=== PATIENT | male | born 1980 | race Caucasian/White ===

== ENCOUNTER 2019-02-17 05:49 | Inpatient (IN) ==
[2019-02-17] MEDS ORDERED: HUMULIN R IV ONE (06:04)
[2019-02-17] MEDS ORDERED: NS 1,000 ML IV ONE (06:04)
--- NOTE | 2019-02-17 06:16 | PROVIDER DOCUMENTATION ---
HPI-Respiratory General - General Chief Complaint: Shortness of Breath Stated Complaint: SOB Time Seen by Provider: 02/17/19 06:03 Source: patient, EMS Allergies/Adverse Reactions: Patient Allergies Allergy/AdvReac Type Severity Reaction Status Date / Time No Known Allergies Allergy Verified 01/15/16 22:45 Home Medications: Home Medication List Medication Instructions Recorded Confirmed Last Taken Type Gabapentin 300 mg PO TID 09/17/14 02/17/19 Unknown History ATORVAstatin [Lipitor] 40 mg PO QHS #30 tablet 01/23/16 02/17/19 Unknown Rx Clopidogrel [Plavix] 75 mg PO DAILY #30 tablet 01/23/16 02/17/19 Unknown Rx Aspirin [Aspirin EC] 81 mg PO QPM 02/17/19 02/17/19 Unknown History Citalopram Hydrobromide [Celexa] 10 mg PO DAILY 02/17/19 02/17/19 Unknown History Furosemide [Lasix] 20 mg PO DAILY 02/17/19 02/17/19 Unknown History Insulin Glargine,Hum.rec.anlog 50 units SQ QPM 02/17/19 02/17/19 Unknown History [Lantus Solostar] Levetiracetam [Keppra] 500 mg PO QPM 02/17/19 02/17/19 Unknown History Levetiracetam [Keppra] 750 mg PO QAM 02/17/19 02/17/19 Unknown History Metformin HCl [Glucophage] 1,000 mg PO BID 02/17/19 02/17/19 Unknown History - History of Present Illness-Resp Nature of Presenting Problem: pt reports cough and congestionyesterday and today, dry cough, . no vomiting. type 1 dIABetes taking 50 u lantus/day. not on home oxygen. 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 No new weakness, no sycnope or seizure. Review of Systems - Adult - REVIEW OF SYSTEMS - ADULT Constitutional: reports: no symptoms reported Eyes: reports: no symptoms reported Ears, Nose, Mouth & Throat: reports: no symptoms reported Cardiovascular: reports: no symptoms reported Respiratory: reports: no symptoms reported Gastrointestinal: reports: no symptoms reported Genitourinary: reports: no symptoms reported Musculoskeletal: reports: no symptoms reported Integumentary: reports: no symptoms reported Neurological: reports: no symptoms reported Psychiatric: reports: no symptoms reported Endocrine: reports: no symptoms reported Hematologic/Lymphatic: reports: no symptoms reported Allergic/Immunologic: reports: no symptoms reported All Other Systems: Reviewed and Negative Past History - Adult - PAST MEDICAL HISTORY-ADULT Review of Records: reports: Old Records Reviewed, Nursing Assessment Review, Medications Reviewed, Social history reviewed & non-contributory. Major Childhood Illnesses: reports: denies history Cardiovascular: reports: HTN Respiratory: reports: asthma Gastrointestinal: reports: denies history Obstetrical/Gynecological: reports: denies history Genitourinary: reports: denies history Musculoskeletal: reports: denies history Neurological: reports: CVA (2014), Seizures/Epilepsy Endocrine/Immune: reports: Diabetes Diabetes Type: Type 1 Other Conditions: reports: denies history - PRIOR SURGERIES/PROCEDURES Surgical/Procedure History: reports: none - PRIOR HOSPITALIZATIONS Prior Hospitalizations: reports: for similar symptoms - IMMUNIZATION STATUS Childhood Immunizations: See Nurse Assessment Flu Vaccine: See Nurse Assessment - FAMILY HISTORY Family History: reviewed, not pertinent - SOCIAL HISTORY Smoking: cigarettes, greater than 1 pack/day Living Situation: family Physical Exam-General - PHYSICAL EXAM-ADULT Initial Vital Signs Reviewed: Yes - CONSTITUTIONAL General Appearance: alert, mild distress - EYES Eyes: PERRL/EOMI - HEAD, EARS, NOSE, MOUTH & THROAT HENMT: normocephalic/atraumatic, moist mucous membranes - NECK Neck: non-tender, full range of motion, supple - RESPIRATORY Respiratory: chest non-tender, lungs clear, normal breath sounds, no pleuratic chest pain, no respiratory distress, no accessory muscle use - CARDIOVASCULAR Cardiovascular: normal peripheral pulses, regular rate, rhythm, no edema, no gallop, no JVD, no murmur - GASTROINTESTINAL (ABDOMEN) Abdominal Exam: normal bowel sounds, non tender, soft, no organomegaly, no pulsatile mass - MUSCULOSKELETAL Extremity: normal inspection - SKIN Integumentary: normal color, normal turgor, warm/dry - NEUROLOGIC Neurologic: other (chronic weakness left upper extremity) - PSYCHIATRIC Psych/Mental Status: normal mood/affect, normal thought content, normal thought process, oriented x 3 Progress - PLAN OF CARE/RESULTS Progress/Plan/Lab Results: Vital Signs - 8 hr 02/17/19 06:02 Temperature 98.4 F Pulse Rate 120 H Respiratory Rate 24 Blood Pressure 131/99 O2 Sat by Pulse Oximetry 91 L Laboratory Results - last 24 hr 02/17/19 02/17/19 02/17/19 06:21 06:21 06:21 WBC 14.38 H RBC 6.02 Hgb 16.3 Hct 51.4 MCV 85.4 MCH 27.1 MCHC 31.7 L RDW Std Deviation 13.5 Plt Count 166 MPV 10.6 H Immature Gran % (Auto) 0.2 Neut % (Auto) 80.4 H Lymph % (Auto) 9.7 L [place] % (Auto) 7.1 Eos % (Auto) 2.3 Baso % (Auto) 0.3 Immature Gran # (Auto) 0.03 Neut # (Auto) 11.57 H Lymph # (Auto) 1.39 [place] # (Auto) 1.02 H Eos # (Auto) 0.33 Baso # (Auto) 0.04 PT 13.0 INR 0.91 PTT (Actin FS) 26.5 Specimen Type Sample Site pH pCO2 pO2 HCO3 Base Excess Oxyhemoglobin ABG O2 Sat (Calculated) ABG O2 Saturation ABG Carboxyhemoglobin ABG Methemoglobin Qamar Test A-a O2 Difference Total Hemoglobin Lactate Liter Flow Blood Gas Modality FiO2 % POC Glucose Plasma Lactate 1.4 02/17/19 02/17/19 06:25 06:44 WBC RBC Hgb Hct MCV MCH MCHC RDW Std Deviation Plt Count MPV Immature Gran % (Auto) Neut % (Auto) Lymph % (Auto) [place] % (Auto) Eos % (Auto) Baso % (Auto) Immature Gran # (Auto) Neut # (Auto) Lymph # (Auto) [place] # (Auto) Eos # (Auto) Baso # (Auto) PT INR PTT (Actin FS) Specimen Type ARTERIAL Sample Site R RADIAL pH 7.32 L pCO2 62 H* pO2 77 HCO3 27.6 H Base Excess 3.7 H Oxyhemoglobin 89.3 L* ABG O2 Sat (Calculated) 19.5 ABG O2 Saturation 97.8 ABG Carboxyhemoglobin 8.00 H* ABG Methemoglobin 0.8 Qamar Test YES A-a O2 Difference 45.0 Total Hemoglobin 15.5 Lactate 1.00 Liter Flow 2.0 Blood Gas Modality CANNULA FiO2 % 28.0 POC Glucose 350 H D Plasma Lactate Orders Category Date Time Status Cardiac Monitoring DIRECTED Care 02/17/19 06:04 Active Saline Loc NOW Care 02/17/19 06:05 Active CHEST-PORTABLE [RAD] Stat Exams 02/17/19 06:06 Taken ABG [RESP] Routine Lab 02/17/19 06:25 Completed ACETONE SERUM [CHEM] Stat Lab 02/17/19 06:21 Results BLOOD CULTURE [BLDCUL] Stat Lab 02/17/19 06:21 Results BMP [BASIC METABOLIC PANEL] [CHEM] Stat Lab 02/17/19 06:21 Results CBC WITH ELECTRONIC DIFF [HEME] Stat Lab 02/17/19 06:21 Completed LACTATE, PLASMA [CHEM] Stat Lab 02/17/19 06:21 Completed PRO B-NATRIURETIC PEPTIDE Stat Lab 02/17/19 06:21 Received PROTIME WITH INR [COAG] Stat Lab 02/17/19 06:21 Completed PTT [COAG] Stat Lab 02/17/19 06:21 Completed TROPONIN T Stat Lab 02/17/19 06:21 Received URINALYSIS W/POSS RFLX CULT [URINALYSIS] Stat Lab 02/17/19 06:06 Uncollected 0.9% Sodium Chloride Inj [Ns] 1,000 ml Med 02/17/19 06:04 Discontinued IV 999 mls/hr Insulin Human Regular [Humulin R] Med 02/17/19 06:04 Discontinued 10 unit IV NOW ONE EKG [EKG] Stat Ther 02/17/19 06:05 Ordered Result Diagrams: 02/17/19 06:21 02/17/19 06:21 - CONSULTS/PCP/HOSPITALIST Notification #1 *Consult/PCP/Hospitalist*: [employer] for Hospitalist Time Discussed: 08:15 Consult Disposition: Will see in ED, Admit - CHANGE OF SHIFT REPORT (ED Provider) 1 Report Given and Care Transferred to:: DR HEARD Time of Transfer: 07:13 Items Pending: Labs Departure - Departure Date of Disposition Decision: 02/17/19 Time of Disposition Decision: 08:16 DIAGNOSIS: COPD (chronic obstructive pulmonary disease), Uncontrolled diabetes mellitus, Hypoxia Disposition: ADMITTED INPATIENT 09 Certified Medical Emergency: Emergent Condition: Fair Referrals and Follow-Ups: Bridgette Deutsch CRNP [Primary Care Provider] - Discharge Education: Steps to Quit Smoking, [id number] - Critical Care Note This patient required my direct & personal management of CC.: No Attestation - Physician/ JOANNE Attestation Patient care was provided by Advanced Practice Provider:: No The physician spent face to face time with patient:: Yes Advanced Practice Provider documentation review:: Supervising physician onsite and consulted in the evaluation and care of this patient. The physician did have a face to face encounter with the patient.
[2019-02-17 06:35] LABS: BE 3.7 mmoll (-3.0-3.0); BLOOD TYPE ARTERIAL; HCO3-(ACT) 27.6 mmoll (20.0-26.0); METHB 0.8 % (0.0-1.5); O2(CT) 19.5 mL/dL (15.0-23.0); PO2(98.6) 77 mmHg (60-100); SAMPLE BLOOD; SAO2 97.8 % (95.0-100.0); THB 15.5 g/dL (11.5-17.4); pH(98.6) 7.32 (7.35-7.45)
[2019-02-17 06:37] LABS: PCO2(98.6) 62 mmHg (35-45)
[2019-02-17 06:38] LABS: ALLEN TEST YES; MODALITY CANNULA; O2HB 89.3 % (95.0-99.0)
[2019-02-17 06:52] LABS: BASO# 0.04 X1000 (0.0-0.2); BASO% 0.3 % (0.0-0.8); EOS# 0.33 X1000 (0.0-0.7); EOS% 2.3 % (0.0-10.0); HEMATOCRIT 51.4 % (42.0-52.0); HEMOGLOBIN 16.3 g/dL (14.0-18.0); IMM GRAN# 0.03 X1000 (0.0-0.04); IMM GRAN% 0.2 % (0.0-0.5); LYMPH# 1.39 X1000 (1.2-3.4); LYMPH% 9.7 % (20.5-51.1); MCH 27.1 PG (27-31); MCHC 31.7 g/dL (33-37); MCV 85.4 FL (81-99); MONO# 1.02 X1000 (0.11-0.59); MONO% 7.1 % (1.7-9.3); MPV 10.6 FL (7.4-10.4); NEUT# 11.57 X1000 (1.4-6.5); NEUT% 80.4 % (42.2-75.2); PLT 166 X1000 (130-400); RBC 6.02 XMIL (4.7-6.1); RDW 13.5 % (11.5-14.5); WBC 14.38 X1000 (4.8-10.8)
[2019-02-17 07:03] LABS: INR 0.91; PTT 26.5 Seconds (22.3-41.8)
[2019-02-17 07:12] LABS: AGAP 11; BUN 15 mg/dL (8-22); CALCIUM 9.5 mg/dL (8.8-10.2); CHLORIDE 93 mmol/L (98-107); COSMO 286; CREATININE 0.7 mg/dL (0.7-1.2); ESTIMATED GFR > 60; GLUCOSE 303 mg/dL (70-104); POTASSIUM 4.7 mmol/L (3.5-5.1); SODIUM 137 mmol/L (136-145); TCO2 33 mmol/L (25-35)
[2019-02-17 07:18] LABS: ACETONE SERUM NEGATIVE (NEGATIVE)
--- NOTE | 2019-02-17 07:21 | Diag Imaging Result Doc PS360 ---
EXAM: CHEST-PORTABLE INDICATION: sob TECHNIQUE: One view COMPARISON: 01/15/2016 FINDINGS: Inspiration is suboptimal. Central vasculature is increased suggesting pulmonary venous congestion. There is mild interstitial thickening centrally suggesting minimal edema. There is no discrete pleural fluid collection or pneumothorax. The cardiac silhouette is mildly prominent. IMPRESSION: Pulmonary venous congestion and minimal interstitial edema. Electronically signed by Junior Lee 02/17/2019 7:18 AM
[2019-02-17 07:31] LABS: URINE SOURCE CLEAN CATCH
[2019-02-17 07:33] LABS: BILIRUBIN URINE NEGATIVE (NEGATIVE); BLOOD URINE NEGATIVE (NEGATIVE); COLOR YELLOW; GLUCOSE URINE 100 mg/dL (NEGATIVE); KETONE URINE 20 mg/dL (NEGATIVE); LEUKOCYTES URINE NEGATIVE (NEGATIVE); NITRITE URINE NEGATIVE (NEGATIVE); PH URINE 5.5; PROTEIN URINE TRACE mg/dL (NEGATIVE); SP GRAVITY URINE 1.007; TURBIDITY URINE CLEAR (CLEAR); UROBILINOGEN URINE NORMAL (NORMAL)
[2019-02-17 07:34] LABS: UR EPITHELIAL CELLS <10 /HPF (<10); URINE BACTERIA NEGATIVE /HPF; URINE RBC <10 /HPF (<10); URINE WBC <10 /HPF (<10)
--- NOTE | 2019-02-17 07:42 | EKG Report ---
Test Performed on : 02/17/2019 05:59:14 AM Test Reason : tachycard Blood Pressure : / mmHG Vent. Rate : 116 BPM Atrial Rate : 116 BPM P-R Int : 172 ms QRS Dur : 112 ms QT Int : 332 ms P-R-T Axes : 095 -51 038 degrees QTc Int : 461 ms Sinus tachycardia. Pulmonary disease pattern RSR' or QR pattern in V1 suggests right ventricular conduction delay Left anterior fascicular block Possible Inferior infarct , age undetermined Abnormal ECG When compared with ECG of 15-JAN-2016 22:38, premature ventricular complexes. are no longer present Left anterior fascicular block is now present RSR' pattern in V1 is now present Borderline criteria for Inferior infarct are now present Unconfirmed Result
[2019-02-17] MEDS ORDERED: ZOFRAN IV PRN (10:10)
[2019-02-17] MEDS ORDERED: LEVAQUIN 750 MG/D5W 750 MG/150 ML IVPB IV SCH (11:30)
[2019-02-17] MEDS: KEPPRA PO SCH ×2 (11:33→21:48)
[2019-02-17] MEDS: PLAVIX PO SCH (11:33)
--- NOTE | 2019-02-17 11:44 | HISTORY AND PHYSICAL ---
CHIEF COMPLAINT: Cough and congestion. HISTORY OF PRESENT ILLNESS: This is a 38-year-old gentleman with a prior history of pontine CVA in 2016, uncontrolled diabetes mellitus, hypertension. He presented to the emergency room complaining of cough and congestion that has been present for the past 4 to 5 days, although it did increase during the last 24 hours. Therefore, he presented for evaluation. He denied any syncope, dizziness, any chest pain, palpitations, any fevers or chills. PAST MEDICAL HISTORY: Hypertension diabetes mellitus, CVA, seizure disorder, dyslipidemia. PAST SURGICAL HISTORY: Denies. SOCIAL HISTORY: He is on disability. He smokes a pack of cigarettes a day. He denies any alcohol or illicit drug use. ALLERGIES: No known drug allergies. HOME MEDICATIONS: A list will be obtained by the nursing staff and, once verified, will review, restart it as appropriate. PHYSICAL EXAMINATION: GENERAL: This is a 38-year-old gentleman, who is lying flat on the stretcher in the emergency room in no distress. VITAL SIGNS: Blood pressure is 125/99 with a heart rate of 103, respirations are 20, temperature is 97.8 degrees oral with room air saturations 93% to 94% on 2 L nasal cannula. EYES: Pupils equal, round, react to light. EOMS are intact. HEENT: Head is normocephalic, atraumatic. Mucous membranes are moist. NECK: Supple with trachea midline. CARDIOVASCULAR: Regular rate and rhythm. He is tachycardic. No JVD. No murmur. He does have some pretibial lower extremity edema with left greater than right with peripheral pulses palpable x4 extremities. Calves are nontender to palpation. PULMONARY: Breath sounds are clear with no increased work of breathing noted. Chest rises and falls symmetrically with respiration. Chest wall is nontender to palpation. He has no increased work of breathing. GASTROINTESTINAL: Abdomen is soft, nontender, nondistended with bowel sounds in all 4 quadrants. SKIN: Warm and dry with good turgor. NEUROLOGIC: He is alert and oriented. He does have residual left-sided weakness from a prior CVA. Speech is slurred from prior CVA. LABS: WBC is 14.3, with a hemoglobin of 16.3, hematocrit 51.4, platelets of 166. INR is 0.91. Sodium 137, potassium 4.7, BUN 15 with a creatinine 0.7, and glucose ranging from 303 to 350. Urinalysis is essentially negative. ABGs: A pH of 7.32 with a pCO2 of 62, PO2 of 77, bicarbonate of 27.6. This is on 2 L nasal cannula. X-RAYS: Chest x-ray revealed pulmonary venous congestion with minimal interstitial edema. ASSESSMENT AND PLAN: 1. Chronic obstructive pulmonary disease. 2. Acute hypercapnic respiratory failure. 3. Uncontrolled diabetes mellitus. 4. Diabetes mellitus type 2 with noncompliance. 5. Seizure disorder. 6. Hypertension. PLAN: The patient will be admitted to the hospital and placed on telemetry for close monitoring. Blood cultures were obtained as we will start Levaquin and any further antibiotics will be culture driven. Will identify his home medications and continue these as appropriate. pattern blood glucose with sliding scale insulin DuoNebs p.r.n. wheezing. Recheck CBC and CMP as well as magnesium in the morning. Further treatments pending hospital course. Dictated by CELESTINO King for Asa Calzada MD This chart was documented by, CELESTINO King and accurately reflects the services performed, treatment plan and medical decisions as attested by the providers signature Asa Calzada MD. cc: CELESTINO King MD [facility]
[2019-02-17 12:55] LABS: BASO# 0.02 X1000 (0.0-0.2); BASO% 0.2 % (0.0-0.8); EOS# 0.39 X1000 (0.0-0.7); EOS% 3.3 % (0.0-10.0); HEMATOCRIT 45.3 % (42.0-52.0); HEMOGLOBIN 14.7 g/dL (14.0-18.0); IMM GRAN# 0.03 X1000 (0.0-0.04); IMM GRAN% 0.3 % (0.0-0.5); LYMPH# 1.81 X1000 (1.2-3.4); LYMPH% 15.5 % (20.5-51.1); MCH 27.9 PG (27-31); MCHC 32.5 g/dL (33-37); MONO# 0.71 X1000 (0.11-0.59); MONO% 6.1 % (1.7-9.3); MPV 10.8 FL (7.4-10.4); NEUT# 8.74 X1000 (1.4-6.5); NEUT% 74.6 % (42.2-75.2); PLT 159 X1000 (130-400); RBC 5.27 XMIL (4.7-6.1); RDW 13.2 % (11.5-14.5)
[2019-02-17 13:09] LABS: HEMOGLOBIN A1C 10.3 % (4.8-6.0)
[2019-02-17 13:25] LABS: AGAP 8; ALB/GLOB RATIO 1.1; ALBUMIN 3.5 g/dL (3.5-5.0); ALKALINE PHOSPHATASE 150 U/L (32-122); BUN 10 mg/dL (8-22); CHLORIDE 100 mmol/L (98-107); COSMO 283; CREATININE 0.4 mg/dL (0.7-1.2); ESTIMATED GFR > 60; GLUCOSE 221 mg/dL (70-104); GOT 17 U/L (10-34); GPT 27 U/L (10-44); MAGNESIUM 1.2 mg/dL (1.5-2.7); POTASSIUM 4.4 mmol/L (3.5-5.1); SODIUM 139 mmol/L (136-145); TCO2 31 mmol/L (25-35); TOTAL BILIRUBIN 0.31 mg/dL (0.20-1.00); TOTAL PROTEIN 6.8 g/dL (6.3-8.3)
[2019-02-17] MEDS: NEURONTIN PO SCH ×2 (14:17→17:23)
--- NOTE | 2019-02-17 16:52 | PROGRESS NOTE ---
DATE: 02/17/2019 SUBJECTIVE: Patient came in with some mild hypercapnia. It looks like he has got a history of CHF, diabetes. Looks like he is in mild CHF exacerbation. He does not sound too bad on exam. He was admitted for a COPD exacerbation, hypercapnic respiratory failure. He did come in with shortness of breath and cough. No fever. A little bit of a white count. Chest x-ray was described as pulmonary vascular congestion and interstitial edema. No pneumonia. His pulmonary exam is pretty clear. He was admitted. From my standpoint I think this is more likely heart failure type exacerbation. I do not think he has got COPD. He does have some mild hypercapnia for which he probably would benefit from some positive pressure ventilation so we will continue to follow. That should be fine. I am going to repeat his echocardiogram. We had 1 a couple years ago and it was negative and we will follow. I am going to add diuretics and continue to monitor. Repeat his chest x-ray tomorrow. 1. Diabetes appears to be not well controlled. We will continue medications. 2. He has a history of seizures. I think will switch him from Levaquin to Rocephin just because of lowering the seizure threshold especially since we are not entirely sure he has bronchitis. He does have a cough so we will continue to follow. This is a ader-cy-gkeo encounter note with Capri Jain. cc: Asa Calzada MD
[2019-02-17] MEDS: GLUCOPHAGE PO SCH (17:24)
[2019-02-17] MEDS: ROCEPHIN 1 GM in NS 50 ML IV SCH (17:53)
[2019-02-17] MEDS: ASPIRIN EC PO SCH (21:48)
[2019-02-17] MEDS: LIPITOR PO SCH (21:48)
[2019-02-17] MEDS: HUMULIN R SUBQ SCH (21:49)
[2019-02-17] MEDS: BASAGLAR SUBQ SCH (21:50)
[2019-02-18] MEDS ORDERED: INSULIN PEN NEEDLES ONE (05:48)
[2019-02-18] MEDS: LOVENOX SUBQ SCH (06:11)
[2019-02-18] MEDS: HUMULIN R SUBQ SCH ×4 (06:12→20:43)
--- NOTE | 2019-02-18 07:18 | Diag Imaging Result Doc PS360 ---
EXAM: CHEST-PORTABLE INDICATION: dyspnea TECHNIQUE: One view COMPARISON: 02/17/2019 FINDINGS: Pulmonary venous congestion and mild edema are essentially stable. No new consolidation is identified. The cardiac silhouette is stable. IMPRESSION: Stable chest. Electronically signed by Junior Lee 02/18/2019 7:16 AM
[2019-02-18] MEDS ORDERED: MAGNESIUM SULFATE 2 GM/S.W.I. 2 GM/50 ML IVPB IV ONE (08:08)
[2019-02-18] MEDS: DUONEB (A & A) INH PRN ×2 (08:09→16:07)
[2019-02-18] MEDS: CELEXA PO SCH (08:38)
[2019-02-18] MEDS: GLUCOPHAGE PO SCH ×2 (08:39→16:00)
[2019-02-18] MEDS: NEURONTIN PO SCH ×3 (08:39→20:43)
[2019-02-18] MEDS: KEPPRA PO SCH ×2 (08:39→20:43)
[2019-02-18] MEDS: PLAVIX PO SCH (08:39)
[2019-02-18] MEDS: ROCEPHIN 1 GM in NS 50 ML IV SCH (15:57)
--- NOTE | 2019-02-18 20:25 | ECHO REPORT ---
ORDER DATE: 02/18/2019 INDICATION: A 38-year-old male with CHF, left-sided paralysis, morbidly obese. Weighs 300 pounds. M-MODE MEASUREMENTS: Left ventricle end diastole: 3.9. Left ventricle end systole: 2.0. Posterior wall: 1.3. Interventricular septum: 1.3. Left atrium: Not properly measured. SUMMARY OF 2-DIMENSIONAL IMAGIN. The study is difficult. Optison was added to opacify the left ventricular chamber. Global left ventricular systolic function appears to be normal, estimated at 60%. The right-sided chambers appear to be mildly enlarged. 2. The aortic valve is grossly normal. Color flow mapping is unremarkable. The Doppler pattern of the aortic valve is within normal range. 3. The inferior vena cava is not dilated. 4. The mitral valve also appears to be grossly normal. 5. Pulsed wave Doppler of mitral inflow shows fusion of the E and A waves. The same thing happens with a tissue Doppler of septal and lateral mitral annulus. There is fusion of the E prime and the A prime waves due to tachycardia. 6. Evaluation of diastolic function is almost impossible, especially due to the poor quality of the signal. 7. I did not visualize the pulmonic valve. The Doppler pattern of the pulmonic valve appeared to be grossly within normal range. 8. There is no pericardial effusion. SUMMARY: 1. This study is very limited. The patient required Optison to opacify the left ventricular chamber. 2. Left ventricular systolic function appears to be normal. 3. There is no evidence of any gross valvular abnormality. 4. There is no pericardial effusion. 5. Diastolic function cannot be evaluated in this case. 6. Pulmonary pressure also cannot accurately evaluated in this case. Clinical correlation recommended. cc: MD Asa Luna MD
[2019-02-18] MEDS: BASAGLAR SUBQ SCH (20:43)
[2019-02-18] MEDS: ASPIRIN EC PO SCH (20:43)
[2019-02-18] MEDS: LIPITOR PO SCH (20:43)
--- NOTE | 2019-02-18 23:35 | PROGRESS NOTE ---
DATE: 02/18/2019 SUBJECTIVE: Patient notes that he still has some shortness of breath, especially with activity. Denies any fevers or chills. PHYSICAL EXAMINATION: Vital Signs: Reviewed. general: He is awake, alert. He is in minimal respiratory distress. HEENT: Normocephalic. Neck: Supple. Cardiovascular: Regular rate. Chest: Decreased breath sounds. No current wheezing. Abdomen: Soft, nondistended. Extremities: Moves all extremities. ASSESSMENT: 1. Chronic obstructive pulmonary disease with exacerbation. 2. Acute hypercapnic respiratory failure. 3. Uncontrolled diabetes. 4. History of seizure disorder. 5. Hypomagnesemia, will replace. PLAN: We will continue patient in hospital. Continue medications, treatment, and will follow. We will recheck labs. Hopefully, home over 1 or 2 days. cc: Michael Ryan MD
[2019-02-19] MEDS: HUMULIN R SUBQ SCH ×4 (06:03→22:04)
[2019-02-19] MEDS: LOVENOX SUBQ SCH (06:03)
[2019-02-19] MEDS: DUONEB (A & A) INH PRN (07:50)
[2019-02-19] MEDS: PLAVIX PO SCH (09:13)
[2019-02-19] MEDS: NEURONTIN PO SCH ×3 (09:13→16:44)
[2019-02-19] MEDS: GLUCOPHAGE PO SCH ×2 (09:13→16:07)
[2019-02-19] MEDS: KEPPRA PO SCH ×2 (09:13→22:03)
[2019-02-19] MEDS: CELEXA PO SCH (09:13)
[2019-02-19] MEDS ORDERED: MIRALAX PO ONE (15:16)
[2019-02-19] MEDS: TYLENOL PO PRN ×2 (15:26→22:03)
[2019-02-19] MEDS: ROCEPHIN 1 GM in NS 50 ML IV SCH (15:30)
[2019-02-19] MEDS: ASPIRIN EC PO SCH (22:03)
[2019-02-19] MEDS: LIPITOR PO SCH (22:03)
[2019-02-19] MEDS: BASAGLAR SUBQ SCH (22:04)
--- NOTE | 2019-02-19 22:09 | PROGRESS NOTE ---
DATE: 02/19/2019 INTERVAL HISTORY: No acute events. He continues to have hyperglycemia. The patient is very sleepy at the moment. Does not engage in conversation. He, however, is arousable to very mild verbal stimuli, not in any acute distress. He thinks he is feeling better. PHYSICAL EXAMINATION: Vital Signs: Temperature 98.7, pulse 92, respiratory rate 18, blood pressure 120/79, saturating 96% on 2 L nasal cannula. General: Morbidly obese, sleeping, not in any acute distress. Easily arousable with verbal stimuli. He does have prominent mouth breathing. Lungs: Air entry bilaterally equal. No wheeze, rhonchi or crackles. His thick chest wall makes auscultation of his chest difficult. Cardiovascular: S1, S2 normal. No murmur, rub, or gallop. DIAGNOSTICS: Previously EKG had suggested sinus tachycardia with pulmonary disease pattern and left anterior fascicular block. His echocardiogram was limited, considering his body habitus. ASSESSMENT: 1. Acute chronic obstructive pulmonary disease exacerbation. 2. Acute hypercarbic respiratory failure. 3. History of seizure disorder. 4. Insulin-dependent diabetes mellitus with hyperglycemia. 5. Hypomagnesemia. PLAN: Continue patient on albuterol/ipratropium nebulization every 4 hours as needed. Continue intravenous ceftriaxone. Continue metformin with Ensure with glargine for diabetes, enoxaparin for DVT prophylaxis. Continue home aspirin, clopidogrel. Echocardiogram has been unremarkable. His previous labs were essentially unremarkable and his troponins on admission was also unremarkable. The patient will be monitored inside the hospital for further 24 hours and we will plan discharging him accordingly. cc: Frederick Devine MD
[2019-02-20] MEDS: HUMULIN R SUBQ SCH ×4 (06:19→21:37)
[2019-02-20] MEDS: LOVENOX SUBQ SCH (06:19)
[2019-02-20 07:46] LABS: BASO# 0.03 X1000 (0.0-0.2); BASO% 0.4 % (0.0-0.8); EOS# 0.71 X1000 (0.0-0.7); EOS% 9.1 % (0.0-10.0); HEMOGLOBIN 14.7 g/dL (14.0-18.0); LYMPH% 17.9 % (20.5-51.1); MCH 27.3 PG (27-31); MCHC 31.3 g/dL (33-37); MCV 87.4 FL (81-99); MONO# 0.53 X1000 (0.11-0.59); MONO% 6.8 % (1.7-9.3); MPV 10.7 FL (7.4-10.4); NEUT# 5.14 X1000 (1.4-6.5); NEUT% 65.8 % (42.2-75.2); PLT 151 X1000 (130-400); RBC 5.38 XMIL (4.7-6.1); RDW 13.2 % (11.5-14.5); WBC 7.81 X1000 (4.8-10.8)
[2019-02-20 08:16] LABS: AGAP 9; BUN 8 mg/dL (8-22); CALCIUM 9.4 mg/dL (8.8-10.2); CHLORIDE 99 mmol/L (98-107); COSMO 283; CREATININE 0.6 mg/dL (0.7-1.2); ESTIMATED GFR > 60; GLUCOSE 228 mg/dL (70-104); POTASSIUM 4.7 mmol/L (3.5-5.1); SODIUM 139 mmol/L (136-145); TCO2 31 mmol/L (25-35)
[2019-02-20] MEDS: PLAVIX PO SCH (08:29)
[2019-02-20] MEDS: GLUCOPHAGE PO SCH ×2 (08:29→16:59)
[2019-02-20] MEDS: CELEXA PO SCH (08:29)
[2019-02-20] MEDS: KEPPRA PO SCH ×2 (08:29→21:18)
[2019-02-20] MEDS: NEURONTIN PO SCH ×3 (08:30→16:59)
[2019-02-20] MEDS: ROCEPHIN 1 GM in NS 50 ML IV SCH (16:59)
--- NOTE | 2019-02-20 18:23 | PROGRESS NOTE ---
DATE: 02/20/2019 INTERVAL HISTORY: Patient was able to come out of bed, use his walker, go to the bathroom without any trouble. He is feeling still a little short of breath. However, he is feeling better than he has been hitting the nebulization works. He is still needing oxygen, however, at home. He does not use oxygen. Continues to have tachycardia. Currently denying any chest pain, nausea, vomiting. He did have a bowel movement. PHYSICAL EXAMINATION: Vitals: Detect temperature 98.7, pulse 113, respiratory rate 18, blood pressure 130/98, saturating 97% on 2 L nasal cannula. General: On physical examination, morbidly obese, not in any acute distress. ENT: Oral cavity is moist. lungs: Decreased respiratory sounds bilaterally because of thick chest wall. I could not appreciate any wheeze, rhonchi, or crackles. Cardiac: S1, S2 normal. No murmur, rub, or gallop. Abdomen: Obese, soft, nontender. Extremities: Mild bilateral lower extremity edema. Neurologic: He is alert, oriented x3. He does have some visual impairment of his left eye. He also has residual weakness of left upper and left lower extremity with power about 2/5. His right upper and lower extremity has intact power. LABS: Suggestive of no leukocytosis. Normal hemoglobin, hematocrit, and platelet count. Normal electrolytes. Magnesium level is pending. Microbiology data: Blood culture no growth after 48 hours. No new imaging. ASSESSMENT AND PLAN: 1. Acute chronic obstructive pulmonary disease exacerbation, likely because of acute viral bronchitis. Continue patient on albuterol/ipratropium nebulization, intravenous ceftriaxone. Continue oxygenation to maintain saturation more than 92%. Add back his home Lasix considering his residual shortness of breath. Monitor him inside the hospital until his shortness of breath is better and he no longer requires oxygen. 2. Acute hypercarbic respiratory failure on admission with blood gas showing a pCO2 of 62. He currently does not appear to be in any distress. He should get outpatient sleep study done. 3. History of seizure disorder. Continue home levetiracetam. 4. History of insulin-dependent diabetes mellitus with hyperglycemia. Continue patient on home dose of insulin glargine, sliding scale insulin, metformin. I am going to increase his glargine dose from 50 units to 60 units at nighttime. 5. History of stroke in the past. Continue patient on aspirin and Plavix, dual anti-platelet therapy. He could not tell me the exact indication of this and high-dose atorvastatin 40 mg at nighttime. 6. Disposition. I am anticipating discharge in the next 24 hours. The patient continues to have mild shortness of breath, so I will see how he does after home dose of Lasix and I discussed with the nursing team about taking off oxygen and see how he does tomorrow. cc: Frederick Devine MD
[2019-02-20] MEDS: LASIX PO SCH (18:46)
[2019-02-20] MEDS: DUONEB (A & A) INH PRN ×2 (19:48→23:25)
[2019-02-20] MEDS ORDERED: BASAGLAR SUBQ SCH (21:00)
[2019-02-20] MEDS: ASPIRIN EC PO SCH (21:16)
[2019-02-20] MEDS: LIPITOR PO SCH (21:16)
[2019-02-20] MEDS: TYLENOL PO PRN (21:17)
[2019-02-21] MEDS: DUONEB (A & A) INH PRN (04:04)
[2019-02-21] MEDS: HUMULIN R SUBQ SCH ×3 (06:05→16:59)
[2019-02-21] MEDS: LOVENOX SUBQ SCH (06:06)
[2019-02-21] MEDS: CELEXA PO SCH (08:42)
[2019-02-21] MEDS: LASIX PO SCH (08:42)
[2019-02-21] MEDS: GLUCOPHAGE PO SCH ×2 (08:42→18:05)
[2019-02-21] MEDS: KEPPRA PO SCH (08:43)
[2019-02-21] MEDS: PLAVIX PO SCH (08:43)
[2019-02-21] MEDS: NEURONTIN PO SCH ×3 (08:43→18:03)
[2019-02-21 15:19] VITALS: BP 151/91
[2019-02-21] MEDS: MAGNESIUM SULFATE 2 GM/S.W.I. 2 GM/50 ML IVPB IV SCH ×2 (15:19→18:00)
[2019-02-21] MEDS: ROCEPHIN 1 GM in NS 50 ML IV SCH (16:15)
--- NOTE | 2019-02-22 01:13 | DISCHARGE SUMMARY ---
ADMISSION DATE: 02/17/2019 DISCHARGE DATE: 02/21/2019 ADDENDUM I agree with most components of discharge summary. In brief, Mr. Doty was admitted for acute COPD exacerbation and acute hypercarbic respiratory failure because of COPD exacerbation as well as sleep apnea. He was treated with nebulization, intravenous ceftriaxone and he got better. Today during my evaluation, he denies any chest pain, shortness of breath, or cough. He is feeling fine. He is sitting on the edge of the bed and eating his lunch. VITALS: Show temperature 97.7 degrees, pulse 82, respiratory rate 18, blood pressure 120/87, saturating 96% on 2 L nasal cannula. PHYSICAL EXAMINATION: General: He does not appear in any acute distress. He is morbidly obese. Lungs: Air entry bilaterally equal. No wheeze, rhonchi, crackles. Cardiovascular: S1, S2 normal. No murmur, rub, or gallop. Abdomen: Soft, nontender. Extremities: No lower extremity edema. Neuro: On my previous neurological examination, he had left-sided ptosis. He also had residual weakness of left upper and lower extremities with power about 215. Right upper and lower extremity had intact power. LABS: Today, his blood sugars are in 200 to 300, and he is receiving treatment for it. His magnesium is 1.3 and he is getting magnesium supplementation. ASSESSMENT AND PLAN: For acute chronic obstructive pulmonary disease exacerbation and acute hypercarbic respiratory failure because of COPD exacerbation as well as sleep apnea, it is essentially resolved. The patient will be discharged on home nebulization and I will provide him albuterol inhaler as well. He should continue most of his home medications. cc: Frederick Devine MD
--- NOTE | 2019-02-22 04:41 | DISCHARGE SUMMARY ---
ADMISSION DATE: 02/17/2019 DISCHARGE DATE: 02/21/2019 DIAGNOSES: 1. Acute chronic obstructive pulmonary disease exacerbation. 2. Acute hypercarbic respiratory failure. 3. History of seizure disorder. 4. Insulin-dependent diabetes mellitus with hyperglycemia. 5. History of cerebrovascular accident. DIAGNOSTICS: 1. 02/17/2019 chest x-ray reveals pulmonary venous congestion and minimal interstitial edema. 2. Chest x-ray 02/18/2019 reveals pulmonary venous congestion and mild edema are essentially stable. New consolidation is identified. The cardiac silhouette is stable. MICROBIOLOGY: Blood cultures revealed no growth after 48 hours x2 cultures. HOSPITAL COURSE: Mr. Doty presented to the emergency room complaining of cough and congestion that had been present for 4 to 5 days. He was found to have a COPD exacerbation with hypercapnic respiratory failure having a pCO2 of 62, PO2 of 77 and pH 7.32 per ABGs. He was treated with DuoNebs, steroids to taper as well as supplemental oxygen and Rocephin. Thankfully, he has improved. DISCHARGE VITAL SIGNS: Blood pressure is 151/91 with a heart rate of 82, respirations are 18, temperature is 98.8 degrees with O2 saturations of 94-96% on 2 L nasal cannula. PHYSICAL EXAMINATION: Cardiovascular: Regular rate and rhythm. S1, S2 appreciated. No murmur. He has some trace pedal edema. Calves are nontender bilateral with peripheral pulses palpable x4 extremities. Pulmonary: Breath sounds are diminished throughout. Chest rises and falls symmetric respiration. Chest wall: Nontender to palpation. Gastrointestinal: Abdomen is soft, nontender, nondistended. Bowel sounds in all 4 quadrants. Neurologic: He is alert and oriented x3. Skin: Warm and dry. DISCHARGE MEDICATIONS: 1. Ventolin inhaler 2 puffs q.6 hours p.r.n. 2. Metformin 1000 mg p.o. b.i.d. 3. Keppra 750 mg q.a.m. 4. Keppra 500 mg q.p.m. 5. Lantus insulin 50 units subcutaneous at bedtime. 6. Neurontin 300 mg p.o. t.i.d. 7. Lasix 20 mg p.o. daily. 8. Plavix 75 mg p.o. daily. 9. Celexa 10 mg p.o. daily. 10. Lipitor 40 mg p.o. at bedtime. 11. Aspirin 81 mg p.o. daily. FOLLOWUP: 1. He needs to follow up his primary care provider. He needs to call Saturday to schedule an appointment in the next 1 to 2 weeks. 2. He has been instructed to call to be seen sooner or return to the emergency room for any syncope, dizziness, chest pain, palpitations, any increasing shortness of breath, temperature greater than 101, any nausea, vomiting, diarrhea, constipation, black or bloody vomitus or stools or for any questions or concerns that he may have. 3. He is being discharged home in stable condition with family members. TIME SPENT: This is a greater than 30 minute discharge. Dictated by CELESTINO King for Frederick Devine MD This chart was documented by, CELESTINO King and accurately reflects the services performed, treatment plan and medical decisions as attested by the providers signature Frederick Devine MD. cc: CELESTINO King MD I agree with most components of discharge summary. A separate addendum has been dictated. BERNARD
== END 2019-02-21 19:55 | disposition home or self-care (01) | DRG 189 ==
LOC: SUPCPDRO → ED 05:49 → SUATTDRO 10:59 → EDIPHOLD 10:59 → 3N 16:14
PROVIDERS: ATTEND Internal Medicine
CPT/HCPCS: 71010; 71045; 80048; 80053; 81001; 82009; 82805; 82948; 83036; 83605; 83735; 83880; 84484; 85025; 85610; 85730; 87040; 93005; 93306; 94640; 94761; 94799; 96361; 96365; 96366; 99285; A9270; C8929; J0696; J1650; J1956; J3475; J7030; Q9957; XXXXX